=== PATIENT | female | born 1970 ===

== ENCOUNTER 2016-11-22 18:57 | Emergency (ER) | payer OTHER ==
[2016-11-22 19:24] VITALS: BP 156/78
[2016-11-22] MEDS ORDERED: Cephalexin CAP* 500 MG PO ONE (19:47)
--- NOTE | 2016-11-22 19:53 | UC ---
UC General HPI - HPI Summary HPI Summary: patient has a large swollen area on upper lip. there is a pus filled area on the wound. starte 3 days ago. - History of Current Complaint Chief Complaint: [place] Stated Complaint: LIP COMPLAINT Time Seen by Provider: 11/22/16 19:26 Hx Obtained From: Patient Onset/Duration: Sudden Onset, Lasting Days Timing: Constant Onset Severity: Moderate Current Severity: Severe - Allergy/Home Medications Allergies/Adverse Reactions: Allergies Allergy/AdvReac Type Severity Reaction Status Date / Time Codeine AdvReac Mild bother Verified 11/22/16 19:13 stomach Home Medications: Home Medications Naproxen Sodium [Naproxen Sodium 220 mg cap] 220 mg PO DAILY PRN 11/22/16 [ History Confirmed 11/22/16] PMH/Surg Hx/FS Hx/Imm Hx Previously Healthy: Yes - Surgical History Surgical History: Yes Surgery Procedure, Year, and Place: breast reduction 2010. gb years ago - Family History Known Family History: Negative: Cardiac Disease, Hypertension - Social History Alcohol Use: None Substance Use Type: None Smoking Status (MU): Never Smoked Tobacco Review of Systems Constitutional: Negative Skin: Other - lip swollen and red Eyes: Negative ENT: Negative Respiratory: Negative Cardiovascular: Negative Gastrointestinal: Negative Genitourinary: Negative Motor: Negative Neurovascular: Negative Musculoskeletal: Negative Neurological: Negative Psychological: Negative All Other Systems Reviewed And Are Negative: Yes Physical Exam Triage Information Reviewed: Yes Appearance: Well-Appearing, Well-Nourished, Pain Distress Vital Signs: Initial Vital Signs Temp 97.1 F 11/22/16 19:06 Pulse 97 11/22/16 19:06 Resp 20 11/22/16 19:06 BP 156/78 11/22/16 19:06 Pulse Ox 99 11/22/16 19:06 Vital Signs Reviewed: Yes Eye Exam: Normal Eyes: Positive: Conjunctiva Clear ENT: Positive: Pharyngeal erythema, TMs normal Dental Exam: Normal Neck exam: Normal Neck: Positive: Supple, Nontender, No Lymphadenopathy Respiratory Exam: Normal Respiratory: Positive: Chest non-tender, Lungs clear, Normal breath sounds Cardiovascular Exam: Normal Cardiovascular: Positive: RRR, No Murmur, Pulses Normal Abdominal Exam: Normal Abdomen Description: Positive: Nontender, No Organomegaly, Soft Bowel Sounds: Positive: Present Musculoskeletal Exam: Normal Musculoskeletal: Positive: Strength Intact, ROM Intact, No Edema Neurological Exam: Normal Neurological: Positive: Alert, Muscle Tone Normal Psychological Exam: Normal Skin: Positive: significant lesion(s) - lareg swollen lip with pus filled head. Course/Dx - Course Course Of Treatment: hx obtained, exam performed ,meds reviewed, wound and viral cultures obtained, small amount of pus drained and then clear blister liek serous fluid. treated with keflex, advised to continue with the valtrex until culture results are obtained. - Differential Dx - Multi-Symptom Provider Diagnoses: lip swelling. possible herpes lesion. possible abscess Discharge - Discharge Plan Condition: Stable Disposition: HOME Prescriptions: Cephalexin CAP* [Keflex CAP*] 500 mg PO BID #13 cap Patient Education Materials: Oral Herpes Simplex Virus Infections (ED), Abscess (ED) Referrals: Kiarra Peres MD [Primary Care Provider] - Additional Instructions: 1. continue with the valtrex and start the antibiotic. 2. keep the lip clean, 3. the cultures will be back in about 48 hours. we did a viral cuture and a bacterial culture. 4. we will notify you with any change in treatment
== END 2016-11-22 19:57 | disposition home or self-care (01) ==
LOC: UCCORT 18:57
DX: R22.0 Localized swelling, mass and lump, head (principal); K13.0 Diseases of lips; Z88.5 Allergy status to narcotic agent
CPT/HCPCS: 10060; 87070; 87205; 87529; 99212; A9270-GY; G0463